=== PATIENT | female | born 1950 | race African-American/Black ===

== ENCOUNTER 2018-11-14 11:29 | Inpatient (IN) | payer BC, OTHER ==
[~2018-11-14] VITALS: Ht 160 cm; Wt 85.3 kg
[~2018-11-14 11:29] MED LIST: ALTACE; ASPIR 8181 MG; AVONEX30 MCG/0.5 IM; AZITHROMYCIN 2250 MG PO; BACLOFEN 10MG T10 M1; BORIC ACID; CLARITIN10 MG PO; CLONAZEPAM; INSULIN HUMALOG; LANTUS; NORVASC10 MG; PREDNISONE 20 M20 MG PO; PROAIR HFA8.5 GM IH; REBIF; SIMVASTATIN40 MG; TESSALON PERLE100 MG PO; TIROSINT100 MCG; TOPROL XL100 MG; TYLENOL325 MG; VENTOLIN HFA 1818 GM; ZYRTEC10 MG PO
[2018-11-14 11:38] VITALS: BP 106/62
[2018-11-14] MEDS ORDERED: CLONAZEPAM0.5 MG PO (11:45)
[2018-11-14] MEDS ORDERED: VITAMIN D5000 UNIT PO (11:47)
[2018-11-14] MEDS ORDERED: LEVOXYL75 MCG PO (11:48)
[2018-11-14 12:34] LABS: ABSOLUTE NEUTROPHILS 10.7 thou/uL (1.4-8.2); BASOPHILS 0.2 % (0.0-2.0); EOSINOPHILS 0.3 % (0.0-3.0); HEMATOCRIT 35.7 % (37.0-47.0); HEMOGLOBIN 12.2 gm/dL (12.0-15.0); LYMPHOCYTES 5.8 % (24.0-44.0); MCH 32.1 pg (26.0-34.0); MCHC 34.2 g/dL (28.0-37.0); MONOCYTES 4.6 % (1.0-8.0); PLATELET COUNT 419 thou/uL (150-400); POLYS 89.1 % (36.0-66.0); RDW 13.4 % (10.5-14.5); WBC 12.1 thou/uL (4.0-11.0)
[2018-11-14 12:37] LABS: CREATININE 2.2 mg/dL (0.6-1.0); POTASSIUM 4.7 mmol/L (3.5-5.1)
[2018-11-14 12:43] LABS: ALBUMIN 2.8 g/dL (3.4-5.0); TOTAL BILIRUBIN 0.4 mg/dL (<0.1-1.0); TOTAL PROTEIN 7.5 g/dL (6.4-8.2)
[2018-11-14 14:44] VITALS: BP 116/61
--- NOTE | 2018-11-14 15:30 | EKG ---
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 Loading: Carey : 1950 Requested By: Paul Robles Order Number: [id number] MD: Jacinto Estes Measurements Intervals [place] Rate: 53 P: 37 KS: 152 QRS: -64 QRSD: 145 T: 6 QT: 465 QTc: 437 Interpretive Statements Sinus bradycardia RBBB and LAFB Left ventricular hypertrophy Baseline wander in lead(s) I,III,aVL,aVF Compared to ECG 02/03/2015 18:30:17 Heart rate has slowed Electronically Signed On 11-14-2018 15:30:03 CDT by Jacinto Estes [email or web address] <ELECTRONICALLY SIGNED> By: Jacinto Estes MD, [facility] 11/14/18 1530 1450 1450 Jacinto Estes MD, [facility] /EPI
[2018-11-14 15:36] VITALS: BP 116/59
--- NOTE | 2018-11-14 15:46 | NUR ---
PT ORIENTED TO ROOM AND UNIT, BED LOW AND LOCKED SIDE RAILS UP X 3, CALL LIGHT IN REACH. TELE APPLIED AND PT SAFETY LETTER SIGNED.
[2018-11-14 17:42] VITALS: BP 104/62; BP 144/73
[2018-11-14 19:27] VITALS: BP 135/75
[2018-11-15] VITALS (7 sets, daily range): BP systolic 124–144; BP diastolic 66–81
[2018-11-15 04:02] LABS: CALCIUM 8.5 mg/dL (8.5-10.1); CREATININE 2.1 mg/dL (0.6-1.0); POTASSIUM 4.7 mmol/L (3.5-5.1)
[2018-11-15 04:16] LABS: HEMATOCRIT 31.3 % (37.0-47.0); HEMOGLOBIN 10.6 gm/dL (12.0-15.0); MCH 32.5 pg (26.0-34.0); MCV 95.8 fL (80.0-100.0); RBC 3.27 mil/uL (4.20-5.00); RDW 13.5 % (10.5-14.5); WBC 8.7 thou/uL (4.0-11.0)
--- NOTE | 2018-11-15 05:37 | NUR ---
PT RESTING IN BED. REMAINS ON RA. SR W/BBB. PT CONTINUES WITH MAINTENANCE IVFs. PT AM LABS REVIEWED.
--- NOTE | 2018-11-15 15:17 | NUR ---
PT ADMITTED RELATED TO [facility]. CM REVIEWED CHART AND SPOKE WITH CARE TEAM THIS DAY. CM MET WITH PT AT BEDSIDE THIS DAY. PT IS A&O X4. CM ROLE INTRODUCED. PT INDICATED SHE LIVES IN A HOUSE WITH HER SPOUSE WITH A NUMBER OF STEPS TO ENTER AND SOME STEPS INSIDE. 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 PT INDICATED SHE HAS MS AND HAD A KNEE REPALCEMENT IN THE PAST AFTER WHICH SHE HAD HH BUT SHE COULDN'T RECALL PROVIDER. PT INDICATED SHE PLANS TO RETURN HOME ONCE MEDICALLY STABLE. CM TO FOLLOW SHOULD ANY DC NEEDS ARISE.
--- NOTE | 2018-11-15 16:46 | NUR ---
ASSESSMENT CHARTED. PT ALERT AND ORIENTED. VSS. DENIED HAVING PAIN OR DISCOMFORT. HOME MED RESTARTED. NO CARDIAC OR RESPIRATOTY DISTRESS NOTED. WILL CONTINUE TO MONITOR.
[2018-11-16 05:37] LABS: HEMATOCRIT 29.7 % (37.0-47.0); HEMOGLOBIN 10.3 gm/dL (12.0-15.0); MCH 32.8 pg (26.0-34.0); MCHC 34.5 g/dL (28.0-37.0); MCV 95.1 fL (80.0-100.0); RBC 3.13 mil/uL (4.20-5.00); RDW 13.6 % (10.5-14.5); WBC 7.3 thou/uL (4.0-11.0)
[2018-11-16 05:52] LABS: CALCIUM 8.3 mg/dL (8.5-10.1); CREATININE 1.7 mg/dL (0.6-1.0); POTASSIUM 4.1 mmol/L (3.5-5.1)
--- NOTE | 2018-11-16 06:30 | NUR ---
PT RESTING QUIETLY IN ROOM CALLS OUT APPROPRIATLY FOR ASSIST UP, BP ELEVATED THIS AM AT 165/84 NOTIFIED NURSE PRACTITIONER RECEIVED ORDERS FOR BP MEDS AND NOW BP DOWN TO 147/74, HR REMAINS SR W/ BBB IN 70'S, DENIES PAIN, WILL CON'T TO MONITOR PER PPOC.
[2018-11-16 06:47] VITALS: BP 147/74
[2018-11-16 07:05] VITALS: BP 152/77
[2018-11-16 11:15] VITALS: BP 156/82
[2018-11-16] MEDS ORDERED: HYDRALAZINE 2525 MG PO (11:32)
[2018-11-16 17:02] VITALS: BP 156/82
--- NOTE | 2018-11-16 17:37 | NUR ---
PT CARE ASSUMED APPROX 0700. PT ALERT AND ORIENTED X4. DENIES PAIN AND SOA. VSS. BS ELEVATED BUT DR GARCIA AWARE. PT IS NOT ON ANY OF HER HOME INSULIN TYPES OR AMOUNTS. REPORTS BS CONTROL AT HOME. PT DISCHARGING AT THIS TIME. ORDERS FOR DISHCARGE PUT IN THIS MORNING BUT PT'S RIDE WAS UNABLE TO COME UNTIL THIS TIME. PT OFF TELE AT TIME ORDERS RECEIVED BUT MEDS F/U ON D/T HYPERGLYECEMIA. DISCHARGE PAPERWORK REVIEWED WITH PT AND SPOUSE. BOTH DENY QUESTIONS OR CONCERNS REGARDING MEDS, F/U APPTS, LAB LEVELS, DIET, ACTIVITY OR GENERAL POST HOSPITAL CARE. IV OUT, TELE BOX OFF. HOSPITAL STAFF ESCORTED PT OUT VIA WHEELCHAIR.
== END 2018-11-16 17:45 | disposition home or self-care (01) | DRG 683 ==
LOC: ER 11:29 → 2N 14:36 → EROBS 14:36 → 2N 15:36 → ENTRNSPT 11-16 17:36 → 2N 11-16 17:45
PROVIDERS: Emergency Medicine; ADMIT Hospitalist
DX: N17.9 Acute kidney failure, unspecified (principal); E87.1 Hypo-osmolality and hyponatremia; E86.0 Dehydration; R55 Syncope and collapse; E11.9 Type 2 diabetes mellitus without complications; G35 Multiple sclerosis; I12.9 Hypertensive chronic kidney disease with stage 1 through stage 4 chronic kidney disease, or unspecified chronic kidney disease; N18.9 Chronic kidney disease, unspecified; M10.9 Gout, unspecified; E11.22 Type 2 diabetes mellitus with diabetic chronic kidney disease; Z79.82 Long term (current) use of aspirin; Z79.890 Hormone replacement therapy; Z79.4 Long term (current) use of insulin; Z79.899 Other long term (current) drug therapy; Z88.6 Allergy status to analgesic agent; Z88.2 Allergy status to sulfonamides; Z88.8 Allergy status to other drugs, medicaments and biological substances
CPT/HCPCS: 10081

== ENCOUNTER 2020-04-10 12:46 | Inpatient (IN) | payer OTHER, BC ==
[~2020-04-10] VITALS: Ht 152.4 cm; Wt 84.0 kg
[2020-04-10] VITALS (8 sets, daily range): BP systolic 117–169; BP diastolic 56–79
[~2020-04-10 12:46] MED LIST changes: +CLONAZEPAM0.5 MG PO; +HYDRALAZINE 2525 MG PO; +LEVOXYL75 MCG PO; +VITAMIN D5000 UNIT PO
[2020-04-10 13:46] LABS: ABSOLUTE NEUTROPHILS 5.4 thou/uL (1.4-8.2); ANION GAP 11 mmol/L (7-16); BASOPHILS 1.2 % (0.0-2.0); BUN 54 mg/dL (7-18); CALCIUM 8.8 mg/dL (8.5-10.1); CHLORIDE 108 mmol/L (98-107); CO2 23 mmol/L (21-32); CREATININE 1.8 mg/dL (0.6-1.0); EOSINOPHILS 2.5 % (0.0-3.0); GLUCOSE 186 mg/dL (74-106); HEMATOCRIT 20.1 % (37.0-47.0); HEMOGLOBIN 6.7 gm/dL (12.0-15.0); LYMPHOCYTES 11.2 % (24.0-44.0); MCH 32.8 pg (26.0-34.0); MCHC 33.2 g/dL (28.0-37.0); MCV 98.8 fL (80.0-100.0); MONOCYTES 5.6 % (1.0-8.0); PLATELET COUNT 246 thou/uL (150-400); POLYS 79.5 % (36.0-66.0); POTASSIUM 4.1 mmol/L (3.5-5.1); RBC 2.04 mil/uL (4.20-5.00); SODIUM 142 mmol/L (136-145); WBC 6.8 thou/uL (4.0-11.0)
[2020-04-10 13:56] LABS: ALBUMIN 2.3 g/dL (3.4-5.0); LIPASE 86 U/L (73-393); MAGNESIUM 1.8 mg/dL (1.8-2.4); SGOT 13 U/L (15-37); SGPT 17 U/L (30-65); TOTAL BILIRUBIN 0.4 mg/dL (0.2-1.0); TOTAL PROTEIN 5.5 g/dL (6.4-8.2); TROPONIN-I <0.06 ng/mL (<0.06)
--- NOTE | 2020-04-10 15:05 | NUR ---
69 y/o female presenting the ED c/o hematemesis that began this morning. Pt reports she woke up at 0600 feeling "faint" and lightheaded that is worse with positioning. States she when went to the bathroom and had a large episode of burgundy-colored hematemesis with colts present. States she has never had sx before, but recently finished a 10 day course of Doxycycline yesterday for bronchitis. Patient was discharged from [facility] on 11-26-18 and discharged home with no needs independently. The patient has been admitted to hospitalist Dr. Alberto with a GI consult and given Zofran, Protonix and IV fluids. Spouse is listed as Chele Watts at [phone] as well as son Ivelisse Butts at [phone]. However in the Ed patient request that her spouse Chele be her main contact, noting that patient remains to be alert and oriented times 4 per the ED staff. CM will follow case for any discharge needs.
[2020-04-10 15:23] LABS: INR 1.2; PROTIME 11.9 Seconds (9.3-11.4)
--- NOTE | 2020-04-10 15:35 | NUR ---
ATTEMPTED TO CALL REPORT, NO ANSWER
--- NOTE | 2020-04-10 20:04 | NUR ---
ASSUMMED PT CARE AT APPROXIMATELY 1630. PT A&O X4. ASSESSMENT CHARTED. FALL PRECAUTIONS IN PLACE. PT DENIES HAVING CHEST PAIN. PT DENIES HAVING SOB. PT DENIES HAVING ACUTE PAIN. PT STATED SHE FELT NAUSEATED. PT RECEIVED ANTIEMETICS. PT VOMITED X1 BLOODY EMESIS. INFORMED DR. VEGA. NEW ORDERS RECEIVED AND IMPLEMENTED. WILL CONTINUE TO MONITOR NAUSEA/VOMITING. PT PASSED OUT ON COMMODE PER SALES SUPPORT COORDINATOR. PT WOKE UP SECONDS LATER. INFORMED DR. VEGA. CODE CALLED AND CANCELED. ORDERS RECEIVED PER DR. VEGA. BLOOD TRANSFUSION STARTED ON PT. PT TOLERATING BLOOD TRANSFUSION. BLOOD SUGAR STABLE. VITAL SIGNS STABLE. INFORMED APPLICATIONS SUPPORT SPECIALIST RN THAT DR. CANAS STATED THAT IF PT CONTINUES TO VOMIT OVERNIGHT THAT HE WILL COME IN TO DO EGD OVERNIGHT. APPLICATIONS SUPPORT SPECIALIST RN STATED UNDERSTANDING AND DENIED HAVING FURTHER QUESTIONS. PT COMFORTABLE IN BED. PT DENIES HAVING FURTHER CONCERNS. INFORMED SPOUSE AND PT OF POC. SPOUSE STATED UNDERSTANDING AND DENIED HAVING FURTHER QUESTIONS.
[2020-04-10 23:47] LABS: HEMATOCRIT 28.2 % (37.0-47.0); HEMOGLOBIN 8.3 gm/dL (12.0-15.0)
[2020-04-11 04:07] VITALS: BP 150/76
--- NOTE | 2020-04-11 05:45 | NUR ---
PATIENTS CARE WERE RECIEVED AT SHIFT CHANGE. PATIENT WAS ASSESSED AND MEDS WERE PASSED. PATIENT HAD A UNITE OF PRBC RUNNING DURING REPORT. IV TEAM STARTED ANOTHER IV TO RUN PROTONIX DRIP WHILE GETTING BLOOD IN A DIFFERENT LINE. A TOTAL OF TWO UNITS GIVEN. NO MORE EMISIS THIS SHIFT. H/H CHECK SHOWED Hbg TO BE 8.3 THE GI TEAM WILL SEE HER IN THE MORNING. IT WAS AN UNEVENTFUL NIGHT.
[2020-04-11 06:13] LABS: ABSOLUTE NEUTROPHILS 4.9 thou/uL (1.4-8.2); EOSINOPHILS 1.1 % (0.0-3.0); HEMATOCRIT 23.5 % (37.0-47.0); HEMOGLOBIN 7.9 gm/dL (12.0-15.0); LYMPHOCYTES 19.8 % (24.0-44.0); MCH 32.4 pg (26.0-34.0); MCHC 33.7 g/dL (28.0-37.0); MCV 96.3 fL (80.0-100.0); MONOCYTES 10.6 % (1.0-8.0); PLATELET COUNT 177 thou/uL (150-400); POLYS 67.5 % (36.0-66.0); RBC 2.44 mil/uL (4.20-5.00); RDW 14.2 % (10.5-14.5); WBC 7.3 thou/uL (4.0-11.0)
[2020-04-11 06:45] LABS: CALCIUM 8.7 mg/dL (8.5-10.1); CREATININE 2.1 mg/dL (0.6-1.0); MAGNESIUM 1.8 mg/dL (1.8-2.4); POTASSIUM 4.2 mmol/L (3.5-5.1)
[2020-04-11 07:22] VITALS: BP 153/63
--- NOTE | 2020-04-11 13:23 | EKG ---
[address] [address] ELECTROCARDIOGRAM REPORT Name: YEISON DOSS Room #: 209-P ADM IN M.R.#: [id number] Admission: 04/10/20 Attend Phys: Isaiah Alberto MD Discharge: Date of : 46 Report #: [id number] [facility] ED Test Date: 2020-04-10 Test Time: 13:12:24 Pat Name: YEISON DOSS Department: Room: 209 Gender: F Guardian Ad Litem: [facility] : 1950 Requested By: Jorge Lomeli Order Number: [id number] MD: Yuri Cruz Measurements Intervals [place] Rate: 88 P: 19 HI: 158 QRS: -82 QRSD: 128 T: 57 QT: 407 QTc: 493 Interpretive Statements Sinus rhythm Probable left atrial enlargement Q's small, V1-2 Compared to ECG 11/14/2018 14:50:29 Sinus bradycardia no longer present Left ventricular hypertrophy no longer present Electronically Signed On 04-11-2020 13:23:22 ROLLER REPAIRER by Yuri Cruz [email or web address] <ELECTRONICALLY SIGNED> By: Yuri Cruz MD, [facility]ACC 04/11/20 1323 1312 1312 Yuri Cruz MD, [facility] /EPI
[2020-04-11 14:50] VITALS: BP 170/79
--- NOTE | 2020-04-11 16:07 | NUR ---
ASSESSMENT CHARTED. PT ALERT AND ORIENTED. HAD EGD THIS AM. AT THE BEDSIDE. UPDATED ON PT'S PROGRESS. NO BLOODY EMESIS THIS SHIFT.
--- NOTE | 2020-04-11 17:20 | NUR ---
Patient admits from home. She resides at home with spouse in multi level home. Patient reports hx of MS. She [facility]. [facility] past and [facility]. She reports from last admission from [facility] she has been using a cane in community. uses no DME in home. She reports bedroom on 3rd level of home. There is a landing between flight of steps and patient reports she uses railing. PCP Dr Jennifer Baker. Patient admits with upper GI Bleed
[2020-04-11 21:38] VITALS: BP 176/64
[2020-04-12] VITALS (8 sets, daily range): BP systolic 147–179; BP diastolic 60–74
[2020-04-12 04:49] LABS: CALCIUM 8.4 mg/dL (8.5-10.1); CREATININE 1.8 mg/dL (0.6-1.0)
[2020-04-12 05:03] LABS: HEMOGLOBIN 7.1 gm/dL (12.0-15.0); MCH 32.8 pg (26.0-34.0); MCHC 33.7 g/dL (28.0-37.0); MCV 97.5 fL (80.0-100.0); RBC 2.16 mil/uL (4.20-5.00); RDW 14.4 % (10.5-14.5); WBC 6.3 thou/uL (4.0-11.0)
--- NOTE | 2020-04-12 07:30 | NUR ---
PATIENT CARES WERE ASSUMED AT SHIFT CHANGE. PATIENT WAS ASSESSED AND MEDS WERE PASSED. PATIENT DID HAVE A BED BATH AND LINEN CHANGE. FOLY WAS CHANGED. THE BED IS IN A LOW AND LOCKED POSITION
--- NOTE | 2020-04-12 16:22 | NUR ---
FAXED REFERRAL TO [facility] SPOKE WITH NIRMALA IN ADM SHE RECEIVED REFERRAL AND WILL ACCEPT AT DC. POSS DC OVER WEEKEND IF PT DISCHARGES FAX DC ORDERS/SUMMARY TO [phone] AND CALL [phone] TO NOTIFY OF DC.
[2020-04-13 03:57] LABS: HEMOGLOBIN 6.9 gm/dL (12.0-15.0); WBC 4.9 thou/uL (4.0-11.0)
[2020-04-13 04:00] LABS: HEMATOCRIT 20.4 % (37.0-47.0); MCV 97.2 fL (80.0-100.0); RBC 2.1 mil/uL (4.20-5.00); RDW 14.2 % (10.5-14.5)
[2020-04-13 04:09] LABS: CALCIUM 8.8 mg/dL (8.5-10.1); CREATININE 1.7 mg/dL (0.6-1.0); POTASSIUM 3.9 mmol/L (3.5-5.1)
[2020-04-13 04:45] VITALS: BP 171/108
--- NOTE | 2020-04-13 05:24 | NUR ---
PT IS ALERT AND ORIENTED X4. LUNGS ARE CLEAR TO DIMINISHED. ON ROOM AIR. PT NEED ASISTANCE TO GO TO BEDSIDE COMMDE TO USE THE BATHROOM WITH ASSISTANCE AND CARE AND TREATMENT. VOID IN COMMODE. NO BM NOTED. DENIES ANY PAIN ISSUES AT THIS TIME PER NURISNG. WILL CONTINUE TO ASSESS AND MONITOR PER NURISNG AT THIS TIME.
[2020-04-13 07:55] VITALS: BP 151/73
[2020-04-13 11:15] VITALS: BP 181/79
--- NOTE | 2020-04-13 14:36 | NUR ---
PT ALERT AND ORIENTED TIMES FOUR. BP ELEVATED BP MEDS STARTED AND GIVEN. OTHER VSS. IVF INFUSING PER ORDER. PT DENIES PAIN/SOA. PT UP TO BSC WITH STANDBY ASSIST. PT TOLERATES MEDS AND MEALS. PT PROGRESSING TOWARDS POC GOALS.
[2020-04-13 16:30] VITALS: BP 191/88
[2020-04-13 20:15] VITALS: BP 175/63
[2020-04-14] VITALS (14 sets, daily range): BP systolic 126–171; BP diastolic 54–96
--- NOTE | 2020-04-14 04:05 | NUR ---
VSS-AFEBRILE. BOTH PIV'S REMOVED DUE TO SWELLING AND PAIN. ALERT AND ORIENTED X 4, LUNGS CLEAR-ROOM AIR. NO C/O OF PAIN. CALLS APPROPRIATELY FOR ANY NEEDED ASSISTANCE.
[2020-04-14 04:17] LABS: HEMATOCRIT 21.5 % (37.0-47.0); HEMOGLOBIN 7.2 gm/dL (12.0-15.0); MCH 32.6 pg (26.0-34.0); MCHC 33.3 g/dL (28.0-37.0); MCV 97.9 fL (80.0-100.0); RBC 2.2 mil/uL (4.20-5.00); RDW 14.2 % (10.5-14.5); WBC 5.9 thou/uL (4.0-11.0)
[2020-04-14 10:11] LABS: HEMATOCRIT 23.5 % (37.0-47.0); HEMOGLOBIN 7.8 gm/dL (12.0-15.0)
[2020-04-14 10:20] LABS: ANION GAP 17 mmol/L (7-16); BUN 41 mg/dL (7-18); CALCIUM 9.3 mg/dL (8.5-10.1); CHLORIDE 100 mmol/L (98-107); CO2 16 mmol/L (21-32); CREATININE 2.2 mg/dL (0.6-1.0); GLUCOSE 489 mg/dL (74-106); POTASSIUM 4.1 mmol/L (3.5-5.1); SODIUM 133 mmol/L (136-145)
[2020-04-14] MEDS ORDERED: COZAAR 25 MG TA25 M1 PO (10:25)
[2020-04-14] MEDS ORDERED: HYDRALAZINE HC100 MG PO (10:26)
[2020-04-14] MEDS ORDERED: LEVO-T100 MCG PO (10:27)
[2020-04-14] MEDS ORDERED: CARVEDILOL25 MG PO (10:27)
[2020-04-14] MEDS ORDERED: KLONOPIN0.5 MG PO (10:28)
[2020-04-14] MEDS ORDERED: BACLOFEN 10MG T10 MG PO (10:28)
[2020-04-14] MEDS ORDERED: LIPITOR40 MG PO (10:29)
[2020-04-14] MEDS ORDERED: ALLOPURINOL 10100 M3 PO (10:29)
[2020-04-14] MEDS ORDERED: NORTRIPTYLINE H10 M1 PO (10:30)
[2020-04-14 10:33] LABS: ALBUMIN 2.8 g/dL (3.4-5.0); MAGNESIUM 1.9 mg/dL (1.8-2.4); PHOSPHORUS 3.2 mg/dL (2.5-4.9); SGOT 25 U/L (15-37); SGPT 22 U/L (30-65); TOTAL BILIRUBIN 0.4 mg/dL (0.2-1.0); TOTAL PROTEIN 6.1 g/dL (6.4-8.2)
--- NOTE | 2020-04-14 12:07 | NUR ---
ASSUMED CARE PT SHIFT CHANGE.ASSESSMENT CHARTED.MEDS GIVNE PER JUN. PT ALERT AND ORIENTED.VSS BP ELEVATED PHYSICIAN AWARE. C/O N/VOMITING, EMESIS WITHOUT BLOOD. BLOOD SUGARS HIGH, PT OWN INSULIN PUMP MALFUNCTIONING. ORDERS RECEIVED TO TX ICU PT IN DKA. REPORT GIVEN TO [employer] CLAROS NOTIFIED. BLOOD TRANSFUSINO ORDERED, PHYSICIAN STATES TO HOLD BLOOD UNTIL INSULIN GTT STARTED AND SECOND IV IS PLACED. PT MOVED TO ICU WITH ALL BELONGINGS
[2020-04-14 14:56] LABS: URINE BILIRUBIN NEGATIVE (Negative); URINE BLOOD NEGATIVE (Negative); URINE CLARITY CLEAR; URINE COLOR YELLOW; URINE GLUCOSE-RANDOM* 3+ (Negative); URINE KETONES 1+ (Negative); URINE LEUKOCYTES-REFLEX NEGATIVE (Negative); URINE NITRITE-REFLEX NEGATIVE (Negative); URINE PROTEIN (DIPSTICK) 2+ (Negative); URINE SPECIFIC GRAVITY 1.025 (1.005-1.035); URINE UROBILINOGEN 0.2 E.U./dl (0.2-1.0)
[2020-04-14 14:58] LABS: ALBUMIN 2.6 g/dL (3.4-5.0); CALCIUM 8.9 mg/dL (8.5-10.1); CREATININE 2.1 mg/dL (0.6-1.0); MAGNESIUM 1.9 mg/dL (1.8-2.4); PHOSPHORUS 2.6 mg/dL (2.5-4.9); POTASSIUM 3.7 mmol/L (3.5-5.1)
[2020-04-14 15:08] LABS: CASTS None Seen /LPF (None Seen); CRYSTALS None Seen /LPF (None Seen); SQUAMOUS >10 Many /LPF (0-3); URINE RBC None Seen /HPF (0-2); URINE WBC-REFLEX 0-5 Rare /HPF (0-5)
[2020-04-14 19:38] LABS: HEMATOCRIT 24.6 % (37.0-47.0); HEMOGLOBIN 8.3 gm/dL (12.0-15.0)
--- NOTE | 2020-04-14 19:42 | NUR ---
PATIENT IN ICU FROM CCU EARLIER TODAY, VITAL STABLE. STARTED ON DKA PROTOCOL WITH INSULIN AND IVF. TRANSFUSED WITH 1 U PRBC AND NO REACTION NOTED. UP TO THE BATHROOM WITH MINIMAL ASSISTANCE. ORDERS ACKNOWLEDGED. PATIENT TO TRANSFER TO [facility] WHERE HER UNIVERSITY RELATIONS DIRECTOR IS. REPORT GIVEN TO MARY JO CLAROS.
--- NOTE | 2020-04-14 20:20 | NUR ---
PT TRANSFERED TO -ICU ROOM HC520. REPORT GIVEN TO RECEIVING NURSE-ANDREA JOSEPH.
--- NOTE | 2020-04-16 17:06 | PATH ---
[facility] [address] [place] [address] PATHOLOGY RPT PROCEDURE Name: SELAMLEELEE Arminda Room #: 236-P [facility] IN M.R.#: [id number] Admission: 04/10/20 Date of : 46 Discharge: 04/14/20 Report #: [id number] Path Case #: [id number] [facility] Accession Number: [id number] . 01 Material submitted: . stomach - BIOPSY GASTRIC POLYP . 01 Clinical history: . UPPER GI BLEED, ESOPHAGEAL ULCER, GASTRIC POLYP, UGIB, ANEMIA . 02 Diagnosis: Polyp, gastric polyp, endoscopic biopsy: - Acutely inflamed hyperplastic polyp with focal goblet cell change. - Negative for dysplasia or malignancy. (IUV/db; 04/16/2020) LBQ 04/16/2020 1159 Local . 02 Electronically signed: . Ginger Luke MD, Pathologist NPI- [id number] . 01 Gross description: . The specimen is received in formalin, labeled "Leelee Watts, gastric polyp biopsy". Received are two segments of pale fitzpatrick soft tissue ranging in size from 0.3 to 0.5 cm in maximum dimensions. The specimen is submitted entirely in cassette A1. (CAA; 04/12/2020) QAC/QAC 04/12/2020 1650 Local . 02 Pathologist provided ICD-10: K31.7 . 02 CPT . 547007 Specimen Comment: A courtesy copy of this report has been sent to [phone], [phone] Specimen Comment: [phone] Specimen Comment: Report sent to ,DR VEGA / DR GARCIA Performed at: [address], [place] [id number] MD August Aguilar MD Phone: [phone] Performed at: [address] [id number] MD Ginger Luke MD Phone: [phone]
== END 2020-04-14 20:15 | disposition short-term general hospital (02) | DRG 380 ==
LOC: ER 12:46 → 2N 14:41 → EROBS 14:41 → 2N 16:08 → ICU 04-14 12:07
PROVIDERS: Hospitalist; Internal Medicine; Nurse Practitioner; Nurse Practitioner Family; Physician Assistant; ADMIT Internal Medicine; ATTEND Internal Medicine
DX: K22.11 Ulcer of esophagus with bleeding (principal); E10.10 Type 1 diabetes mellitus with ketoacidosis without coma; N17.0 Acute kidney failure with tubular necrosis; E43 Unspecified severe protein-calorie malnutrition; D62 Acute posthemorrhagic anemia; T85.694A Other mechanical complication of insulin pump, initial encounter; I25.10 Atherosclerotic heart disease of native coronary artery without angina pectoris; E03.9 Hypothyroidism, unspecified; M10.9 Gout, unspecified; E10.22 Type 1 diabetes mellitus with diabetic chronic kidney disease; I12.9 Hypertensive chronic kidney disease with stage 1 through stage 4 chronic kidney disease, or unspecified chronic kidney disease; G35 Multiple sclerosis; N18.30 Chronic kidney disease, stage 3 unspecified; D63.8 Anemia in other chronic diseases classified elsewhere; K59.00 Constipation, unspecified; F41.9 Anxiety disorder, unspecified; M81.0 Age-related osteoporosis without current pathological fracture; Z20.822 Contact with and (suspected) exposure to COVID-19; Z88.0 Allergy status to penicillin; Z88.2 Allergy status to sulfonamides; Z88.8 Allergy status to other drugs, medicaments and biological substances; Z88.6 Allergy status to analgesic agent; Z91.041 Radiographic dye allergy status; Z79.899 Other long term (current) drug therapy
CPT/HCPCS: 10081; 62110; 62900; 70005; 85076